=== PATIENT | female | born 1960 ===

== ENCOUNTER → 2019-12-04 14:30 | Outpatient (REF) | payer OTHER, SELFPAY | LOC: ANHLAB 14:30 | PROVIDERS: Visit Provider Nurse Practitioner | DX: D23.39 Other benign neoplasm of skin of other parts of face (principal) | CPT/HCPCS: 88305 ==

== ENCOUNTER → 2022-04-28 15:56 | Outpatient (REF) | payer OTHER, SELFPAY | LOC: ANHLAB 15:56 | PROVIDERS: Visit Provider Nurse Practitioner | DX: D22.5 Melanocytic nevi of trunk (principal) | CPT/HCPCS: 88305; 88342 ==